=== PATIENT | male | born 1950 | race Caucasian/White ===

== ENCOUNTER → 2023-12-15 08:15 | Outpatient (REF) | payer MEDICARE, OTHER, SELFPAY | LOC: HWRAD 08:15 | PROVIDERS: ATTENDING PHYSICIAN Student in an Organized Health Care Education/Training Program | DX: Z12.2 Encounter for screening for malignant neoplasm of respiratory organs (principal); Z72.0 Tobacco use; Z76.89 Persons encountering health services in other specified circumstances; M25.512 Pain in left shoulder | CPT/HCPCS: 71250; 73030; 76770 ==

== ENCOUNTER 2024-01-02 12:50 | Outpatient (RCR) | payer MEDICARE, OTHER, SELFPAY | END 2024-01-02 23:59 | disposition home or self-care (01) | LOC: RPT 12:50 | PROVIDERS: ATTENDING PHYSICIAN Student in an Organized Health Care Education/Training Program | DX: M25.512 Pain in left shoulder (principal); M25.552 Pain in left hip; Z73.6 Limitation of activities due to disability | CPT/HCPCS: 97010; 97110; 97112; 97140; 97163 ==

== ENCOUNTER 2024-01-19 14:47 | Outpatient (RCR) | payer MEDICARE, OTHER, SELFPAY | END 2024-01-22 07:16 | disposition home or self-care (01) | LOC: RPT 14:47 | PROVIDERS: ATTENDING PHYSICIAN Student in an Organized Health Care Education/Training Program | DX: M25.512 Pain in left shoulder (principal); M25.552 Pain in left hip; Z73.6 Limitation of activities due to disability | CPT/HCPCS: 97010; 97110; 97112 ==

== ENCOUNTER → 2024-03-21 14:01 | Outpatient (REF) | payer MEDICARE, OTHER, SELFPAY | LOC: RAD 14:01 | PROVIDERS: ATTENDING PHYSICIAN Student in an Organized Health Care Education/Training Program | DX: R06.02 Shortness of breath (principal); R14.0 Abdominal distension (gaseous); R63.0 Anorexia | CPT/HCPCS: 71275; 74177; Q9967 ==

== ENCOUNTER → 2024-03-25 11:14 | Outpatient (REF) | payer MEDICARE, OTHER, SELFPAY | LOC: HWRCS 11:14 | PROVIDERS: ATTENDING PHYSICIAN Student in an Organized Health Care Education/Training Program; FAMILY PHYSICIAN Student in an Organized Health Care Education/Training Program | DX: I42.8 Other cardiomyopathies (principal) | CPT/HCPCS: 93306 ==

== ENCOUNTER → 2024-04-12 07:16 | Outpatient (REF) | payer MEDICARE, OTHER, SELFPAY | LOC: HWRCS 07:16 | PROVIDERS: ATTENDING PHYSICIAN Student in an Organized Health Care Education/Training Program | DX: R06.02 Shortness of breath (principal) | CPT/HCPCS: 78452; 93017; A9500; J2785 ==

== ENCOUNTER 2024-07-09 06:09 | Day surgery (SDC) | payer MEDICARE, SELFPAY ==
[2024-07-03 13:27] VITALS: BMI 27.0
[2024-07-03 14:11] LABS: % Basophils 0.7 % (0-2); % Eosinophils 4.9 % (0-6); % Immature Granulocytes 0.4 % (0-0.5); % Lymphocytes 27.1 % (20.5-51.1); % Monocytes 6.7 % (1.7-9.3); % Neutrophils 60.2 % (42.2-75.2); Absolute Basophils 0.1 10^3/uL (0-0.2); Absolute Eosinophils 0.5 10^3/uL (0-0.7); Absolute Lymphocytes 2.9 10^3/uL (1.2-3.4); Absolute Monocytes 0.7 10^3/uL (0.1-0.6); Absolute Neutrophils 6.4 10^3/uL (1.4-6.5); Hematocrit 32.1 % (39.0-52.0); Hemoglobin 11.2 g/dL (13.0-18.0); Mean Corp Hgb Conc. 34.9 g/dL (33.0-37.0); Mean Corpuscular Hgb 29.8 pg (27.0-31.0); Mean Corpuscular Volume 85.4 fL (80.0-94.0); Mean Platelet Volume 10.1 fL (7.4-10.4); Nucleated Red Blood Cells % 0 % (-); Platelet Count 185 10^3/uL (130-400); Red Blood Cell Count 3.76 10^6/uL (4.70-6.10); White Blood Cell Count 10.7 10^3/uL (4.8-10.8)
[2024-07-03 14:32] LABS: ALT (SGPT) 25 U/L (0-50); AST (SGOT) 21 U/L (17-59); Albumin 4.9 g/dl (3.5-5.0); Alkaline Phosphatase 45 U/L (38-126); Blood Urea Nitrogen 30 mg/dl (9-20); Carbon Dioxide 26 mmol/L (22-30); Chloride 101 mmol/L (98-107); Estimated Creatinine Clearance 61 ml/min; Glucose 233 mg/dl (70-99); Potassium 4.5 mmol/L (3.5-5.1); Sodium 141 mmol/L (135-145); Total Bilirubin 0.4 mg/dl (0.2-1.3); eGFR > 60.00
[2024-07-09] VITALS (15 sets, daily range): BP systolic 110–156; BP diastolic 50–85; BMI 26.5
[2024-07-09] MEDS: LOW STRENGTH ASPIRIN 81 MG PO (07:07)
[2024-07-09 07:10] LABS: Glucose - Point of Care 175 mg/dl (70-99)
--- NOTE | 2024-07-09 08:27 | ITS.CL.PN ---
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
Procedure
Procedure Note:
CARDIAC CATHETERIZATION REPORT
Date of Procedure: 07/09/2024
Referring: Jeff Daley MD, PhD
Indication: ventricular tachycardia
PROCEDURE(S)
1. right heart catheterization
2. left heart catheterization
3. coronary angiography
ACCESS
1. 6F right radial artery (closure: radial band)
2. 5F right antecubital vein (closure: manual hemostasis)
CATHETERS
1. 5F [place]
2. 6F JR4
3. 6F JL3.5
MODERATE SEDATION: 25 minutes of moderate sedation was utilized. An independent medical clerical assistant was present to assist with and help manage the patient's level of consciousness and physiologic status.
HEMODYNAMIC DATA
LV 103/4 (EDP 8) mmHg
AO 109/60 (mean 80) mmHg
RA 8 mmHg
RV 23/3 (EDP 7) mmHg
PA 21/9 (mean 15) mmHg
PCWP 10 mmHg
SaO2 95.3%
SvO2 66.1%
Hb 11.5 g/dL
CO/CI 5.53/2.74 L/min/m2
SVR 1041 dsc*-5
PVR 0.9 [place] units
CORONARY ANGIOGRAPHY
Dominance: co-dominant
LM: Large, normal
LAD: Large vessel giving rise to a moderate caliber D1 and small D2. There is mild nonobstructive disease.
LCx: Large vessel giving rise to a small OM1, moderate caliber OM2, moderate caliber OM3, and small LPDA. There is mild nonobstructive disease.
RCA: Moderate caliber vessel giving rise to a moderate caliber RPDA. There is a 40% ostial stenosis with no pressure dampening on engagement in a long smooth 40% stenosis in the proximal vessel.
RADIATION: dose 320.69 mGy; DAP 24.5231 Gy*cm2; fluoroscopy time 4.3 min
CONCLUSIONS
1. Normal biventricular filling pressures, normal pulmonary artery pressure, and normal cardiac output
2. No aortic stenosis on hemodynamic pullback
3. Nonobstructive coronary artery disease in a codominant system
RECOMMENDATIONS
1. Secondary prevention of coronary artery disease
2. Start spironolactone for GDMT for HFrEF. Patient may need to discontinue non-GDMT antihypertensives to allow room for up titration. Plan for eventual initiation of SGLT2i if affordable.
3. Given scar on stress test and nonobstructive coronary artery disease, etiology of VT likely scar based and due to nonischemic cardiomyopathy. Will initially focus on optimization of GDMT. If patient has recurrent VT/shocks will refer to EP for
consideration of AAD versus VT ablation.
Copy to: Dr. Jeff Ling MD, PhD (training and development director); Dr. Mady Downs MD (PCP)
Signed: Jeff Daley MD, PhD
[2024-07-09 08:53] LABS: Glucose - Point of Care 170 mg/dl (70-99)
== END 2024-07-09 12:18 | disposition home or self-care (01) ==
LOC: CATH 06:09
PROVIDERS: ATTENDING PHYSICIAN Student in an Organized Health Care Education/Training Program; FAMILY PHYSICIAN Student in an Organized Health Care Education/Training Program
DX: I25.10 Atherosclerotic heart disease of native coronary artery without angina pectoris (principal); I47.20 Ventricular tachycardia, unspecified; I42.8 Other cardiomyopathies; E11.9 Type 2 diabetes mellitus without complications; E78.5 Hyperlipidemia, unspecified; F32.A Depression, unspecified; F41.9 Anxiety disorder, unspecified; I11.0 Hypertensive heart disease with heart failure; I50.22 Chronic systolic (congestive) heart failure; J44.9 Chronic obstructive pulmonary disease, unspecified; Z86.0100 Personal history of colon polyps, unspecified; K76.0 Fatty (change of) liver, not elsewhere classified; K21.9 Gastro-esophageal reflux disease without esophagitis; K86.0 Alcohol-induced chronic pancreatitis; M54.30 Sciatica, unspecified side; M19.90 Unspecified osteoarthritis, unspecified site; N40.1 Benign prostatic hyperplasia with lower urinary tract symptoms; R09.82 Postnasal drip; L57.0 Actinic keratosis; Z87.891 Personal history of nicotine dependence; Z79.899 Other long term (current) drug therapy; Z79.82 Long term (current) use of aspirin; Z79.1 Long term (current) use of non-steroidal anti-inflammatories (NSAID); Z88.8 Allergy status to other drugs, medicaments and biological substances; I42.9 Cardiomyopathy, unspecified; Z79.84 Long term (current) use of oral hypoglycemic drugs
CPT/HCPCS: 99152; 99153; 36415; 80053; 82962; 85025; 93005; 93460; C1894; Q9967

== ENCOUNTER → 2024-09-24 13:57 | Outpatient (REF) | payer MEDICARE, SELFPAY | LOC: HWRAD 13:57 | PROVIDERS: ATTENDING PHYSICIAN Student in an Organized Health Care Education/Training Program | DX: N40.1 Benign prostatic hyperplasia with lower urinary tract symptoms (principal) | CPT/HCPCS: 76770 ==

== ENCOUNTER 2024-10-10 06:22 | Day surgery (SDC) | payer MEDICARE, SELFPAY ==
[2024-10-10 07:12] VITALS: BMI 26.5
[2024-10-10 07:16] VITALS: BMI 26.5
[2024-10-10 07:27] VITALS: BP 156/90
[2024-10-10 07:41] LABS: Glucose - Point of Care 179 mg/dl (70-99)
[2024-10-10 09:05] VITALS: BP 122/72
[2024-10-10 09:15] VITALS: BP 165/68
[2024-10-10 09:30] VITALS: BP 155/79
[2024-10-10 09:40] VITALS: BP 153/77
== END 2024-10-10 09:45 | disposition home or self-care (01) ==
LOC: GI 06:22
PROVIDERS: ATTENDING PHYSICIAN Internal Medicine Gastroenterology
DX: Z12.11 Encounter for screening for malignant neoplasm of colon (principal); D50.0 Iron deficiency anemia secondary to blood loss (chronic); K57.30 Diverticulosis of large intestine without perforation or abscess without bleeding; R12 Heartburn; R68.81 Early satiety; R09.A2 Foreign body sensation, throat; D12.2 Benign neoplasm of ascending colon; D12.4 Benign neoplasm of descending colon; D12.5 Benign neoplasm of sigmoid colon
CPT/HCPCS: 45385; 45380; 43235; 82962; 88305

== ENCOUNTER → 2024-12-12 11:44 | Outpatient (REF) | payer MEDICARE, SELFPAY | LOC: RAD 11:44 | PROVIDERS: ATTENDING PHYSICIAN Student in an Organized Health Care Education/Training Program | DX: R41.89 Other symptoms and signs involving cognitive functions and awareness (principal); R55 Syncope and collapse | CPT/HCPCS: 70470; Q9967 ==

== ENCOUNTER → 2025-02-28 10:51 | Outpatient (REF) | payer MEDICARE, SELFPAY | LOC: RCS 10:51 | PROVIDERS: ATTENDING PHYSICIAN Student in an Organized Health Care Education/Training Program; FAMILY PHYSICIAN Student in an Organized Health Care Education/Training Program | DX: I25.10 Atherosclerotic heart disease of native coronary artery without angina pectoris (principal) | CPT/HCPCS: 93306 ==